=== PATIENT | male | born 1985 ===

== ENCOUNTER 2018-08-25 16:19 | Emergency (ER) | payer MEDICAID ==
[2018-08-25 16:20] VITALS: BMI 35.4
[2018-08-25 16:25] VITALS: RESP 18; O2SAT 97
--- NOTE | 2018-08-25 16:49 | C.PDOC ---
History Of Present Illness 32 y/o male, w/PMhx of herniated discs, presents to the ER complaining of lower back pain which has been present since yesterday. Patient describes the pain as dull and aching. Patient reports that the pain radiates to the buttocks and and bilateral thighs. He notes that he went to urinate in the morning ,he had a large void and it burned at the end of it. He denies having another episode since then. Denies having blood in urine, discharge, incontinence, weakness, numbness, fever, and chills. Time Seen by Provider: 08/25/18 16:31 Chief Complaint (Nursing): Back Pain History Per: Patient History/Exam Limitations: no limitations Onset/Duration Of Symptoms: Days Current Symptoms Are (Timing): Still Present Severity: Moderate Past Medical History Reviewed: Historical Data, Nursing Documentation, Vital Signs Vital Signs: Last Vital Signs Temp 98.4 F 08/25/18 16:23 Pulse 105 H 08/25/18 16:23 Resp 18 08/25/18 16:23 BP 119/74 08/25/18 16:23 Pulse Ox 97 08/25/18 16:23 - Medical History PMH: Back Problems Surgical History: Appendectomy Family History: States: No Known Family Hx - Social History Hx Alcohol Use: No Hx Substance Use: No - Immunization History Hx Tetanus Toxoid Vaccination: No Hx Influenza Vaccination: No Hx Pneumococcal Vaccination: No Review Of Systems Except As Marked, All Systems Reviewed And Found Negative. Constitutional: Negative for: Fever, Chills Genitourinary: Negative for: Dysuria, Incontinence, Hematuria Musculoskeletal: Positive for: Back Pain (lower back pain) Neurological: Negative for: Weakness, Numbness Physical Exam - Physical Exam Appears: Non-toxic, No Acute Distress Skin: Normal Color, Warm, Dry Head: Atraumatic, Normacephalic Eye(s): bilateral: Normal Inspection Nose: Normal Oral Mucosa: Moist Neck: Supple Chest: Symmetrical Cardiovascular: Rhythm Regular Respiratory: Normal Breath Sounds, No Rales, No Rhonchi, No Wheezing Back: Paraspinal Tenderness (mild paralumbar tenderness), Other (no bulging, no rash) Neurological/Psych: Oriented x3, Normal Speech ED Course And Treatment O2 Sat by Pulse Oximetry: 97 (RA) Pulse Ox Interpretation: Normal Medical Decision Making Medical Decision Making: Impression: Lower Back Pain Plan: * Labs * UA * Toradol IM * Valium PO RE-eval: Patient resting comfortably, no longer having back pain, no fever, no bony tenderness, no numbness, no weakness, no abdominal pain. Patient is ambulatory in the emergency department with no discomfort. Patient advised to follow up with their physician in 1-2 days. Disposition Counseled Patient/Family Regarding: Diagnosis, Need For Followup, Rx Given - Disposition Referrals: [facility] [Outside] [facility] [Outside] Disposition: HOME/ ROUTINE Disposition Time: 17:37 Condition: GOOD Additional Instructions: Apply heat to area 15 minutes three times a day. Take Motrin as needed for pain every 6 hours, with food to not upset stomach. Take Flexeril for muscle pain and spasm, caution can cause drowsiness. Follow up with orthopedic if pain persists over one week Aplique calor al abe 15 minutos rigoberto veces al da. [place] Motrin cuando sea necesario para el dolor cada 6 horas, con alimentos para no alterar el estmago. [place] Flexeril para el dolor y el espasmo muscular, la precaucin puede causar somnolencia. Seguimiento con ortopedia si el dolor persiste mayte yvette semana Prescriptions: Cyclobenzaprine [Cyclobenzaprine HCl] 10 mg PO TID #30 tab Ibuprofen [Motrin] 600 mg PO Q8 #30 tab traMADol [Ultram] 50 mg PO Q8 #20 tab Instructions: Low Back Pain (DC) Print Language: URDU - POA Present On Arrival: None - Clinical Impression Clinical Impression: Low back strain - PA / MERCHANDISING ASSISTANT / Resident Statement MD/DO has reviewed & agrees with the documentation as recorded. - Scribe Statement The provider has reviewed the documentation as recorded by the Katelin Gonzalez Provider Attestation All medical record entries made by the Beataibe were at my direction and personally dictated by me. I have reviewed the chart and agree that the record accurately reflects my personal performance of the history, physical exam, medical decision making, and the department course for this patient. I have also personally directed, reviewed, and agree with the discharge instructions and disposition.
[2018-08-25 17:18] LABS: URINE BILIRUBIN NEGATIVE (NEGATIVE); URINE CLARITY Clear (Clear); URINE COLOR Yellow (YELLOW); URINE GLUCOSE (UA) NORMAL (Normal); URINE LEUKOCYTE ESTERASE NEG Leu/uL (Negative); URINE PROTEIN NEGATIVE (NEGATIVE); URINE UROBILINOGEN NORMAL mg/dL (0.2-1.0)
[2018-08-25 17:20] LABS: URINE BLOOD TRACE (NEGATIVE)
[2018-08-25 17:47] VITALS: BP 112/70; PULSE 97; TEMP 99.1
== END 2018-08-25 18:04 | disposition home or self-care (01) ==
LOC: C.ER 16:19
DX: S39.012A Strain of muscle, fascia and tendon of lower back, initial encounter (principal); X58.XXXA Exposure to other specified factors, initial encounter
CPT/HCPCS: 81001; 87491; 87591; 96372; 99284; J1885

== ENCOUNTER 2018-11-27 15:27 | Emergency (ER) | payer MEDICAID ==
[2018-11-27 15:28] VITALS: BMI 35.4
[2018-11-27 15:33] VITALS: BP 133/82; PULSE 109; RESP 20; TEMP 98.6; O2SAT 95
[2018-11-27 16:07] LABS: SQUAMOUS EPITHIAL < 1 /hpf (0-5); URINE BILIRUBIN NEGATIVE (NEGATIVE); URINE BLOOD NEGATIVE (NEGATIVE); URINE CLARITY Clear (Clear); URINE COLOR Amber (YELLOW); URINE GLUCOSE (UA) NORMAL (Normal); URINE LEUKOCYTE ESTERASE NEG Leu/uL (Negative); URINE PROTEIN NEGATIVE (NEGATIVE)
--- NOTE | 2018-11-27 16:12 | C.PDOC ---
History Of Present Illness Patient reports R sided lower back pain radiating to R leg since yesterday, accompanied by dysuria. He took his mother's pyridium with minimal relief. Able to ambulate, no leg weakness, no leg/groin numbness, no fever. Time Seen by Provider: 11/27/18 15:39 Chief Complaint (Nursing): Male Genitourinary Past Medical History Reviewed: Historical Data, Nursing Documentation, Vital Signs Vital Signs: Last Vital Signs Temp 98.6 F 11/27/18 15:30 Pulse 109 H 11/27/18 15:30 Resp 20 11/27/18 15:30 BP 133/82 11/27/18 15:30 Pulse Ox 95 11/27/18 15:30 - Medical History PMH: Back Problems Surgical History: Appendectomy Family History: States: Unknown Family Hx - Social History Hx Alcohol Use: No Hx Substance Use: No - Immunization History Hx Tetanus Toxoid Vaccination: No Hx Influenza Vaccination: No Hx Pneumococcal Vaccination: No Review Of Systems Except As Marked, All Systems Reviewed And Found Negative. Constitutional: Negative for: Fever, Chills Cardiovascular: Negative for: Chest Pain Respiratory: Negative for: Shortness of Breath Gastrointestinal: Negative for: Nausea, Vomiting, Abdominal Pain, Diarrhea Genitourinary: Positive for: Dysuria. Negative for: Incontinence Musculoskeletal: Positive for: Back Pain Neurological: Negative for: Weakness Physical Exam - Physical Exam Appears: Well, Non-toxic, No Acute Distress Skin: Normal Color, Warm, Dry Head: Normacephalic Eye(s): bilateral: Normal Inspection Oral Mucosa: Moist Cardiovascular: Rhythm Regular Respiratory: Normal Breath Sounds Gastrointestinal/Abdominal: Normal Exam Back: Normal Inspection, No CVA Tenderness, No Vertebral Tenderness, No Decreased ROM, No Paraspinal Tenderness, No Straight Leg Raising Extremity: Normal ROM, No Pedal Edema, No Deformity, No Swelling Extremity: Bilateral: Atraumatic, Normal Color And Temperature, Normal ROM, Other Pulses: Left Dorsalis Pedis: Normal, Right Dorsalis Pedis: Normal Neurological/Psych: Oriented x3 Gait: Steady (no difficulty ambulating, able to bear weight on legs) ED Course And Treatment O2 Sat by Pulse Oximetry: 95 (RA) Pulse Ox Interpretation: Normal Medical Decision Making Medical Decision Making: UA done and was positive for nitrites however no leuk esterase or elevated WBC. However, given symptoms of UTI, will treat. Rx written for macrobid. Disposition - Disposition Disposition: HOME/ ROUTINE Disposition Time: 16:38 Condition: GOOD Additional Instructions: JUSTIN RODRIGUEZ, thank you for letting us take care of you today. Your provider was Brunilda Coto MD and you were treated for MALE GENITOURINARY. The emergency medical care you received today was directed at your acute symptoms. If you were prescribed any medication, please fill it and take as directed. It may take several days for your symptoms to resolve. Return to the Emergency Department if your symptoms worsen, do not improve, or if you have any other problems. Please contact your doctor or call one of the physicians/clinics you have been referred to that are listed on the Patient Visit Information form that is included in your discharge packet. Bring any paperwork you were given at discharge with you along with any medications you are taking to your follow up visit. Our treatment cannot replace ongoing medical care by a primary care provider outside of the emergency department. Thank you for allowing the [facility] team to be part of your care today. If you had an X-Ray or CT scan: A Radiologist will review the ED reading if any change in treatment is needed we will contact you. If you had a blood, urine, or wound culture: It will take several days for the results, if any change in treatment is needed we will contact you. If you had an STI test: It will take 48 hours for the results. Please call after 1 week if you have not heard back. Prescriptions: RX: Ibuprofen [Motrin Tab] 600 mg PO Q8H #20 tab Nitrofurantoin Macrocrystals [Macrobid] 100 mg PO BID #14 cap Instructions: Urinary Tract Infection, Adult (DC) Forms: 8020select (Sami) - Clinical Impression Clinical Impression: Urinary tract infection
== END 2018-11-27 16:41 | disposition home or self-care (01) ==
LOC: C.ER 15:27
DX: N39.0 Urinary tract infection, site not specified (principal)